=== PATIENT | female | born 1980 | race Caucasian/White ===

== ENCOUNTER 2025-01-26 13:09 | Outpatient (CLI) | payer OTHER ==
[2025-01-26 14:18] LABS: Hematocrit 32.6 % (34.9-44.5); Hemoglobin 10.4 g/dL (12.0-15.5); Mean Corpuscular Hemoglobin 26.9 pg (27.0-33.0); Mean Corpuscular Volume 84.5 fL (81.6-98.3); Platelet Count 353 10x3/uL (150-450); Red Blood Cell (RBC) Count 3.86 10x6/uL (3.90-5.03); White Blood Cell (WBC) Count 6.57 10x3/uL (3.5-10.5)
== END 2025-01-26 13:10 | disposition home or self-care (01) ==
LOC: CSHLAB 13:09
PROVIDERS: ATTEND Family Medicine
DX: Z01.812 Encounter for preprocedural laboratory examination (principal); O02.1 Missed abortion
CPT/HCPCS: 84702; 85027; 86850; 86900; 86901

== ENCOUNTER 2025-01-29 11:23 | Day surgery (SDC) | payer OTHER ==
[2025-01-26 13:37] VITALS: BMI 26.6
[2025-01-29] MEDS ORDERED: Tranexamic Acid 1,000 MG/10 ML VIAL ONE (12:18)
[2025-01-29] MEDS ORDERED: Carboprost 250 MCG/ML AMP ONE (12:19)
[2025-01-29] MEDS ORDERED: Methylergonovine 0.2 MG/ML VIAL ONE (12:19)
[2025-01-29] MEDS ORDERED: PROPOFOL 20 ML ONE (12:26)
[2025-01-29] MEDS ORDERED: Lidocaine 1% PF 5 ML VIAL ONE (12:26)
[2025-01-29] MEDS ORDERED: Ondansetron PF 4 MG/2 ML Vial ONE ×2 (12:40→13:42)
[2025-01-29] MEDS ORDERED: Ketorolac Tromethamine 30 MG (1 mL) VIAL ONE (13:38)
== END 2025-01-29 15:15 | disposition home or self-care (01) ==
LOC: CSHSDC 11:23
PROVIDERS: ATTEND Family Medicine
PROC: 10D17ZZ Extraction of Products of Conception, Retained, Via Natural or Artificial Opening (ICD-10-PCS; principal; 2025-01-29)
DX: O02.1 Missed abortion (principal); O09.521 Supervision of elderly multigravida, first trimester; O09.41 Supervision of pregnancy with grand multiparity, first trimester; O99.611 Diseases of the digestive system complicating pregnancy, first trimester; K21.9 Gastro-esophageal reflux disease without esophagitis; O99.341 Other mental disorders complicating pregnancy, first trimester; F41.9 Anxiety disorder, unspecified; F32.A Depression, unspecified; O99.311 Alcohol use complicating pregnancy, first trimester; F10.90 Alcohol use, unspecified, uncomplicated; Y90.9 Presence of alcohol in blood, level not specified; Z3A.08 8 weeks gestation of pregnancy; Z98.84 Bariatric surgery status; Z90.49 Acquired absence of other specified parts of digestive tract; Z88.5 Allergy status to narcotic agent; Z88.8 Allergy status to other drugs, medicaments and biological substances; Z79.899 Other long term (current) drug therapy
CPT/HCPCS: 36415; 84702; 88305; J1100; J1885; J2210; J2704; J3490

== ENCOUNTER 2025-03-23 18:40 | Emergency (ER) | payer OTHER ==
[2025-03-23 19:32] LABS: #Basophils 0.08 10x3/uL (0.0-0.2); #Eosinophils 0.09 10x3/uL (0.0-0.5); #Monocytes 0.60 10x3/uL (0.0-1.1); #Neutrophils 3.87 10x3/uL (1.5-8.4); %Basophils 1.1 % (0.0-2.0); %Eosinophils 1.2 % (0.0-6.0); %Lymphocytes 37.0 % (18.0-47.0); %Monocytes 8.1 % (0.0-10.0); %Neutrophils 52.3 % (40.0-75.0); Hematocrit 30.4 % (34.9-44.5); Hemoglobin 9.5 g/dL (12.0-15.5); Mean Corpuscular Hemoglobin 26.5 pg (27.0-33.0); Mean Corpuscular Volume 84.7 fL (81.6-98.3); Platelet Count 387 10x3/uL (150-450); Red Blood Cell (RBC) Count 3.59 10x6/uL (3.90-5.03); White Blood Cell (WBC) Count 7.40 10x3/uL (3.5-10.5)
[2025-03-23 19:34] LABS: Glucose, Urine (Dipstick) Normal (Negative); Leukocyte Negative (Negative); Protein, Urine (Dipstick) Negative (Neg-Trace); Specific Gravity, Urine 1.010 (1.005-1.030)
[2025-03-23 19:47] LABS: ALT (SGPT) 16 U/L (Less than 34); AST (SGOT) 44 U/L (11-34); Albumin 3.9 g/dL (3.1-4.5); Alkaline Phosphatase 75 U/L (40-110); Anion Gap 11 mmol/L (10-20); BUN (Urea Nitrogen) 15 mg/dL (7.0-18.7); Bilirubin, Total 0.1 mg/dL (0.3-1.2); Calc. Creatinine Clearance 0 mL/min (70-130); Calcium 9.1 mg/dL (7.8-10.44); Carbon Dioxide 18 mmol/L (22-29); Chloride 110 mmol/L (98-107); Globulin 3.5 g/dL (2.4-3.5); Glucose 74 mg/dL (70-105); Sodium 134 mmol/L (136-145)
[2025-03-23 19:49] LABS: Potassium 4.6 mmol/L (3.5-5.1)
[2025-03-23 20:21] LABS: CAUTI Indications for Culture Pelvic or flank pain; WBC/HPF 0-3 HPF (0-3)
[2025-03-23 20:23] LABS: Bacteria/HPF Rare-Few HPF (None Seen); RBC/HPF None Seen HPF (0-3)
[2025-03-23 20:24] LABS: Urine Culture Reflex No No
[2025-03-24 13:33] LABS: Chlamydia by PCR, Vaginal Swab Not Detected (NotDetected); GC by PCR, Vaginal Swab Not Detected (NotDetected)
== END 2025-03-23 22:10 | disposition home or self-care (01) ==
LOC: CSHERS 18:40
DX: O99.891 Other specified diseases and conditions complicating pregnancy (principal); R11.0 Nausea; R53.83 Other fatigue; O09.521 Supervision of elderly multigravida, first trimester; Z3A.01 Less than 8 weeks gestation of pregnancy
CPT/HCPCS: 76856; 80053; 81001; 84702; 85025; 86900; 86901; 87428; 87480; 87491; 87510; 87591; 87660

== ENCOUNTER 2025-04-23 11:47 | Day surgery (SDC) | payer OTHER ==
[2025-04-22 10:18] VITALS: BMI 27.4
[2025-04-23 12:25] LABS: #Basophils Less than 0.03 10x3/uL (0.0-0.2); #Eosinophils 0.09 10x3/uL (0.0-0.5); #Monocytes 0.35 10x3/uL (0.0-1.1); #Neutrophils 2.89 10x3/uL (1.5-8.4); %Basophils 0.5 % (0.0-2.0); %Eosinophils 2.0 % (0.0-6.0); %Lymphocytes 23.8 % (18.0-47.0); %Monocytes 7.9 % (0.0-10.0); %Neutrophils 65.6 % (40.0-75.0); Hematocrit 30.9 % (34.9-44.5); Hemoglobin 10.2 g/dL (12.0-15.5); Mean Corpuscular Hemoglobin 27.1 pg (27.0-33.0); Mean Corpuscular Volume 82.2 fL (81.6-98.3); Platelet Count 296 10x3/uL (150-450); Red Blood Cell (RBC) Count 3.76 10x6/uL (3.90-5.03); White Blood Cell (WBC) Count 4.41 10x3/uL (3.5-10.5)
[2025-04-23] MEDS ORDERED: Ondansetron PF 4 MG/2 ML Vial ONE ×2 (13:34→13:36)
[2025-04-23] MEDS ORDERED: PROPOFOL 20 ML ONE ×2 (13:36→14:36)
[2025-04-23] MEDS ORDERED: Carboprost 250 MCG/ML AMP ONE (14:10)
[2025-04-23] MEDS ORDERED: Methylergonovine 0.2 MG/ML VIAL ONE (14:10)
[2025-04-23] MEDS ORDERED: Tranexamic Acid 1,000 MG/10 ML VIAL ONE (14:10)
[2025-04-23] MEDS ORDERED: Ferric Subsulfate 8 ML TOPICAL SOLN ONE (15:17)
[2025-04-23] MEDS ORDERED: Ketorolac Tromethamine 30 MG (1 mL) VIAL ONE (15:18)
[2025-04-23] MEDS ORDERED: Ondansetron PF 4 MG/2 ML Vial IVP PRN (15:33)
[2025-04-23] MEDS ORDERED: Ibuprofen 400 MG TAB PO PRN (15:33)
[2025-04-23] MEDS ORDERED: HYDROcodone/Acetaminophen 5/325 mg Tablet ONE (16:39)
== END 2025-04-23 17:13 | disposition home or self-care (01) ==
LOC: CSHSDC 11:47
PROVIDERS: ATTEND Family Medicine
PROC: 10D17ZZ Extraction of Products of Conception, Retained, Via Natural or Artificial Opening (ICD-10-PCS; principal; 2025-04-23)
DX: O02.1 Missed abortion (principal); M47.816 Spondylosis without myelopathy or radiculopathy, lumbar region; Z98.84 Bariatric surgery status; Z90.49 Acquired absence of other specified parts of digestive tract; Z98.890 Other specified postprocedural states; Z88.8 Allergy status to other drugs, medicaments and biological substances; Z88.5 Allergy status to narcotic agent
CPT/HCPCS: 36415; 85025; 86850; 86900; 86901; 88305; J1100; J1885; J2210; J2250; J2405; J2704; J3010; J3490